=== PATIENT | female | born 1985 | race Caucasian/White ===

== ENCOUNTER 2017-01-09 08:00 | Emergency (ER) | payer OTHER ==
[~2017-01-09] VITALS: Ht 157.5 cm; Wt 67.5 kg
[~2017-01-09 08:00] MED LIST: PREN-39 PO
[2017-01-09 08:04] VITALS: Ht 157.5 cm; Wt 67.5 kg
--- NOTE | 2017-01-09 08:33 | ERD ---
ER Documentation Chief Complaint Date/Time DATE: 01/09/17 TIME: 08:30 Chief Complaint Complains of nausea, vomiting and dizziness with right arm pain HPI 31-year-old female who presented emergency room with multiple complaints including dizziness, nauseous but no vomiting, left upper back pain, left shoulder pain, left arm pain. Her symptoms is on and off for more than 2 weeks. She also stated that she has urinary frequency in the past few days. Also added that she is taking [id number] omeprazole, Mylanta. Denies headache, loss of consciousness, dizziness, blurry vision, changes in vision, photophobia, facial pain, ear pain, throat pain, difficulty swallowing, neck pain, shoulder pain, chest pain, cough, hemoptysis, abdominal pain, back pain, loss of appetite, hematochezia, diarrhea, constipation, , the possibility of being , bladder and bowel incontinences, extremity weakness, extremity tenderness, numbness or tingling sensation, difficulty walking, recent travel, recent exposure to illness, recent antibiotic use in the last 3 months, fever, chills. Allergy: Penicillin. PMH: Denies. Family medical history: Denies family history of stroke, cardiac before the age of 50 AO LMP: 12/24/2016 Medications: Omeprazole. Surgery: Denies. Primary Social History: Not working at this time. Denies smoking, use of alcohol, use of illegal drugs. ROS All systems reviewed and are negative except as per history of present illness. Medications Home Meds Reported Medications Vits W-Ca,Fe,Fa(<1MG) ( Vitamins) 1 Tab Tablet, 1 TAB PO DAILY for 7 Days 01/12/14 Allergies Allergies: Coded Allergies: Penicillins (Verified Allergy, Intermediate, DIARRHEA AND RASH, 08/15/12) PMhx/Soc History of Surgery: Yes (BREAST BENIGN MASS REMOVED) Anesthesia Reaction: No Hx Neurological Disorder: No Hx Respiratory Disorders: No Hx Cardiac Disorders: No Hx Psychiatric Problems: No Hx Miscellaneous Medical Probl: No Hx Alcohol Use: No Hx Substance Use: No Hx Tobacco Use: No Physical Exam Vitals Vital Signs Date Time Temp Pulse Resp B/P Pulse Ox O2 Delivery O2 Flow Rate FiO2 01/09/17 08:04 97.8 93 20 110/61 100 Physical Exam CONSTITUTIONAL: Well-appearing; well-nourished; in no apparent distress. HEAD: Normocephalic; atraumatic. EYES: Conjunctiva clear, sclera non-icteric, EOM intact. PERRL Ears: Hearing intact. EACs clear, TMs non-bulging, non-inflamed, translucent & mobile, ossicles normal appearance, No obstructions, no erythema, no discharges Nose: No obstructions. No polyps. No external lesions. Mucosa non-inflamed. No external lesions, septum and turbinates normal. No rhinorrhea. No discharges. Frontal sinus is non-tender to palpation. Maxillary sinus is non-tender to palpation. MOUTH: Moist mucous membranes, no lesion, no obstructions, no vesicles, no thrush, patent airway Throat: Uvula in midline. Right tonsil is +1 with no erythema, no exudate. Left tonsil is +1 with no erythema, no exudate. Tolerating secretions well. Good gag reflex. Patent airway. Neck: Supple, without lesions, bruits, or adenopathy. No mass. Thyroid non- enlarged and non-tender to palpation. CHEST: Symmetrical chest. Respirations even and not labored. No retractions noted. CARDIOVASCULAR: Normal S1, S2. RRR. No murmurs, gallops. RESPIRATORY: Normal chest excursion with respiration; breath sounds clear and equal bilaterally; no wheezes, rhonchi, or rales. Breathing even and unlabored. Speaking in clear, full, and complete sentences w/ ease. ABDOMEN: Normal bowel sounds normal. Soft, round, non-distended, non-guarding, no tenderness, no rebound, no organomegaly, no masses, no pulsating abdominal mass. No hernia. No peritoneal signs. : No CVA tenderness. BACK: Symmetrical shoulder. Spine is midline without deformity, tenderness. No evidence of trauma or deformity. PELVIS: Stable pelvis. No evidence of trauma or deformity. MUSCULOSKELETAL: Normal gait and station. No misalignment, asymmetry, crepitation, defects, tenderness, masses, effusions, decreased range of motion, instability, atrophy or abnormal strength or tone in the head, neck, spine, ribs , pelvis or extremities. No calf tenderness. NEUROVASCULAR: Distal pulses are present. Pedal pulse are present, equal, and normal. Capillary refills are < 2 seconds. NEUROLOGIC: Alert and oriented x4. Speaks full and clear sentences. Cranial Nerves II-XII normal. Sensation to pain, touch, and proprioception normal. Grossly unremarkable. No neurologic deficits. Romberg test is negative. PSYCHOLOGICAL: The patients mood and manner are appropriate. No hallucinations , delusions. Not SI. Not HI. Has the capacity to decide for self SKIN: Normal for age and ethnicity; warm; dry; good turgor; no apparent lesions or exudates. No rashes, hives, discoloration. Intact. Result Diagram: 01/09/17 0850 01/09/17 0850 Results 24 hrs Laboratory Tests Test 01/09/17 08:45 01/09/17 08:50 Urine Color LT. YELLOW Urine Clarity SLIGHTLY CLOUDY Urine pH 8.5 Urine Specific Estill 1.015 Urine Ketones NEGATIVE Urine Nitrite NEGATIVE Urine Bilirubin NEGATIVE Urine Urobilinogen 0.2 E.U./dL Urine Leukocyte Esterase NEGATIVE Urine Hemoglobin NEGATIVE Urine Glucose NEGATIVE% Urine Total Protein NEGATIVE White Blood Count 7.710^3/ul Red Blood Count 4.5710^6/ul Hemoglobin 14.3g/dl Hematocrit 42.8% Mean Corpuscular Volume 93.7fl Mean Corpuscular Hemoglobin 31.3pg Mean Corpuscular Hemoglobin Concent 33.4g/dl Red Cell Distribution Width 11.6% Platelet Count 47242^3/UL Mean Platelet Volume 10.1fl Neutrophils % 59.1% Lymphocytes % 32.8% Monocytes % 6.2% Eosinophils % 1.2% Basophils % 0.6% Nucleated Red Blood Cells % 0.0/100WBC Neutrophils # 4.610^3/ul Lymphocytes # 2.510^3/ul Monocytes # 0.510^3/ul Eosinophils # 0.110^3/ul Basophils # 0.110^3/ul Nucleated Red Blood Cells # 0.010^3/ul Sodium Level 139mmol/L Potassium Level 4.4mmol/L Chloride Level 102mmol/L Carbon Dioxide Level 27mmol/L Anion Gap 14 Blood Urea Nitrogen 14mg/dl Creatinine 0.70mg/dl Glucose Level 97mg/dl Calcium Level 9.1mg/dl Total Bilirubin 0.4mg/dl Direct Bilirubin 0.00mg/dl Indirect Bilirubin 0.4mg/dl Aspartate Amino Transf (AST/SGOT) 24IU/L Alanine Aminotransferase (ALT/SGPT) 21IU/L Alkaline Phosphatase 70IU/L Troponin I < 0.012ng/ml Total Protein 8.1g/dl Albumin 4.6g/dl Globulin 3.50g/dl Albumin/Globulin Ratio 1.31 Amylase Level 81U/L Lipase 78U/L Current Medications Medications (Trade) Dose Ordered Sig/Roosevelt Route PRN Reason Start Time Stop Time Status Last Admin Dose Admin Miscellaneous Medication (Gi Cocktail (2)) 40 ml ONCE ONCE PO 01/09/17 09:00 01/09/17 09:01 DC 01/09/17 08:47 Procedures/MDM Examination: Please see physical examination. Disease process, medical treatment was explained to the patient and family member. They verbalized understanding and agreed with the diagnostic tests, medical treatment, and follow-up care. EKG: Normal sinus rhythm with sinus arrhythmia with ventricular rate of 81 bpm. No evidence of acute myocardial infarction. Blood works: Reviewed. POC urine : Negative. Urinalysis: Reviewed. Treatment: GI cocktail. Re-evaluation: Denies headache dizziness, blurry vision, neck pain, chest pain, back pain, shoulder pain, arm pain, abdominal pain. No nausea and vomiting. Unremarkable abdominal re-examination. No neurological deficits. Consultation: None. Differential diagnosis: Acute myocardial infarction verus shoulder pain versus dizziness versus gastritis versus cholecystitis versus versus UTI Medical decision makin-year-old female who presented emergency room with multiple complaints including dizziness, nauseous but no vomiting, left arm pain , left shoulder pain. Her symptoms is on and off for more than 2 weeks. She also stated that she has urinary frequency in the past few days. Also added that she is taking [id number] omeprazole, Mylanta. Patient's complaint, patient's history about her complaint, my physical findings, diagnostic test results are consistent with my final diagnosis of gastritis. Medications prescribed are the following: Zofran. Pepcid. Patient and family member are made aware of the side effects and adverse reactions of the medications prescribed. Instructed on when to seek emergent and medical attention in case allergic/anaphylactic reactions or severe side effects and or adverse reactions to medications. Patient and family member verbalized understanding. Patient instructed Instructed to follow-up with his PCP in 24-48 hours. Patient stated that she will follow-up with her primary care provider in the next 24-48 hours. Instructed to Call 911 for chest pain, shortness of breath. Advised to come back here in ED as soon as possible for severity of symptoms which includes but not limited to: any new symptoms; shortness of breath/difficulty of breathing; cardiovascular changes; severe gastrointestinal symptoms; signs and symptoms of bleeding and or infection; signs of compartment syndrome/neurovascular changes; neurological changes/deficits. Patient and family member verbalized understanding. Upon discharge, patient is alert and oriented x 4, speaks full and clear sentences, denies pain, has no neurological deficits, has no neurovascular deficits, difficulty of breathing. Breathing even and unlabored. Lung sounds are clear to auscultation. Not in distress. Appears comfortable. Ambulatory with steady gait. Appears satisfied with care provided here in ED. Departure Diagnosis: Primary Impression: Gastritis Condition: Good Additional Instructions: Patient instructed Instructed to follow-up with his PCP in 24-48 hours. Patient stated that she will follow-up with her primary care provider in the next 24-48 hours. Instructed to Call 911 for chest pain, shortness of breath. Advised to come back here in ED as soon as possible for severity of symptoms which includes but not limited to: any new symptoms; shortness of breath/difficulty of breathing; cardiovascular changes; severe gastrointestinal symptoms; signs and symptoms of bleeding and or infection; signs of compartment syndrome/neurovascular changes; neurological changes/deficits. Patient and family member verbalized understanding. BRAXTON BELTRÁN Jan 09, 2017 08:33
[2017-01-09 08:59] LABS: ADD SCAN DIFF NO
[2017-01-09] MEDS ORDERED: LIDOCAINE/MYLANTA 40 ML BTL PO ONE (09:00)
[2017-01-09 09:02] LABS: ADD UMIC NO; URINE BILIRUBIN (Dip) NEGATIVE (NEGATIVE); URINE BLOOD (Dip) NEGATIVE (NEGATIVE); URINE COLOR LT. YELLOW (YELLOW); URINE GLUCOSE (Dip) NEGATIVE (NEGATIVE); URINE KETONES (Dip) NEGATIVE (NEGATIVE); URINE LEUKOCYTE ESTERASE (Dip) NEGATIVE (NEGATIVE); URINE NITRITE (Dip) NEGATIVE (NEGATIVE); URINE TOTAL PROTEIN (Dip) NEGATIVE (NEGATIVE); URINE UROBILINOGEN (Dip) 0.2 E.U./dL (0.1-1.0)
[2017-01-09 09:03] LABS: BASOPHIL # 0.1 10^3/ul (0.0-0.1); BASOPHILS % 0.6 % (0.0-2.0); EOSINOPHILS # 0.1 10^3/ul (0.0-0.5); EOSINOPHILS % 1.2 % (0.0-7.0); HEMATOCRIT 42.8 % (37.0-47.0); HEMOGLOBIN 14.3 g/dl (12.0-16.0); LYMPHOCYTES # 2.5 10^3/ul (0.8-2.9); LYMPHOCYTES % 32.8 % (15.0-51.0); MEAN CORPUSCULAR HEMOGLOBIN 31.3 pg (29.0-33.0); MEAN CORPUSCULAR HGB CONC 33.4 g/dl (32.0-37.0); MEAN CORPUSCULAR VOLUME 93.7 fl (82.0-101.0); MEAN PLATELET VOLUME 10.1 fl (7.4-10.4); MONOCYTE # 0.5 10^3/ul (0.3-0.9); MONOCYTES % 6.2 % (0.0-11.0); NEUTROPHIL # 4.6 10^3/ul (1.6-7.5); NEUTROPHILS % 59.1 % (39.0-77.0); PLATELET COUNT 240 10^3/UL (140-415); RED BLOOD COUNT 4.57 10^6/ul (4.20-5.40); RED CELL DISTRIBUTION WIDTH 11.6 % (11.5-14.5); WHITE BLOOD COUNT 7.7 10^3/ul (4.8-10.8)
[2017-01-09 09:13] LABS: ALBUMIN 4.6 g/dl (3.3-4.9); CHLORIDE 102 mmol/L (97-110)
[2017-01-09 09:14] LABS: POTASSIUM 4.4 mmol/L (3.5-5.1); SODIUM 139 mmol/L (135-144)
[2017-01-09 09:16] LABS: ALBUMIN/GLOBULIN RATIO 1.31; AMYLASE 81 U/L (11-123); ANION GAP 14 (8-16); CARBON DIOXIDE 27 mmol/L (21-31); TOTAL PROTEIN 8.1 g/dl (6.1-8.1)
[2017-01-09 09:17] LABS: ALANINE AMINOTRANSFERASE 21 IU/L (13-69); ALKALINE PHOSPHATASE 70 IU/L (42-121); ASPARTATE AMINO TRANSFERASE 24 IU/L (15-46); BILIRUBIN,INDIRECT 0.4 mg/dl (0-1.1); BILIRUBIN,TOTAL 0.4 mg/dl (0.2-1.3); BLOOD UREA NITROGEN 14 mg/dl (7-20); CALCIUM 9.1 mg/dl (8.4-10.2); GLUCOSE 97 mg/dl (70-220)
[2017-01-09 09:28] LABS: TROPONIN-I < 0.012 ng/ml (0.00-0.12)
[2017-01-09] MEDS ORDERED: FAMO-18 PO (09:35)
[2017-01-09] MEDS ORDERED: ONDA4TAB14 PO (09:36)
== END 2017-01-09 09:45 | disposition home or self-care (01) ==
LOC: FTE 08:00
DX: K29.70 Gastritis, unspecified, without bleeding (principal); R11.2 Nausea with vomiting, unspecified; R35.0 Frequency of micturition
CPT/HCPCS: 80053; 81003; 82150; 83690; 84484; 85025; 87086; 93005; Z7610; 36415

== ENCOUNTER 2017-03-01 06:26 | Day surgery (SDC) | payer OTHER ==
[~2017-03-01] VITALS: Ht 154.9 cm; Wt 67.8 kg
[~2017-03-01 06:26] MED LIST changes: +FAMO-18 PO; +ONDA4TAB14 PO
[2017-03-01 07:00] VITALS: Ht 154.9 cm; Wt 67.8 kg
[2017-03-01] MEDS ORDERED: PANT40TA4 PO (07:13)
[2017-03-01 07:57] VITALS: BP 110/66; PULSE 71; RESP 14
[2017-03-01] MEDS ORDERED: FENTAnyl 50 MCG/ML VIAL ONE (08:21)
[2017-03-01] MEDS ORDERED: MIDAZOLAM 1 MG/ML 2 ML INJ ONE (08:21)
[2017-03-01 08:45] VITALS: BP 88/56; RESP 20
--- NOTE | 2017-03-02 07:35 | GILP ---
DATE OF PROCEDURE: 03/01/2017 PROCEDURE: Esophagogastroduodenoscopy and biopsy. SURGEON: Dr. Santiago PREOPERATIVE DIAGNOSES: 1. Abdominal pain. 2. Chronic heart block. POSTOPERATIVE DIAGNOSES: 1. Gastroesophageal reflux disease. 2. Gastritis with erosions. 3. Gastric mucosal biopsies were taken for Helicobacter pylori test. INDICATION FOR THE PROCEDURE: Ms. Emma Kingsley is a 31-year-old female patient with right upper abdominal pain and chronic heartburn, not responding to therapy. Patient was scheduled for endoscopic examination for further evaluation. The procedure and possible complications are well explained to the patient. She understood and consented to the procedure. DESCRIPTION OF PROCEDURE: Under the influence of fentanyl and Versed, the gastroscope was carefully introduced into the esophagus under direct vision. It was advanced to the stomach, into the pylorus into the duodenal bulb and ____ . FINDINGS: ESOPHAGUS: gastroesophageal reflux disease, but the esophageal mucosa was normal. STOMACH: She had gastritis with erosions. Gastric mucosal biopsies were taken for H. pylori test. DUODENUM: Normal. She tolerated the procedure very well. There is no complication from the procedure. At the end of procedure, she was awake with stable vital signs, and she was discharged home to the care of her family. IMPRESSION: 1. Gastroesophageal reflux disease. 2. Gastritis with erosions. 3. Gastric mucosal biopsies were taken for Helicobacter pylori test. PLAN: 1. Pantoprazole 40 mg p.o. q.a.m. 2. Zantac 300 mg p.o. at bedtime. 3. Await histopathology report. Dictated By: JOHAN BYNUM/HONORIO Conf#: [id number] DID#: [id number] CC: JOHAN SANTIAGO MD;*EndCC* MTDD
== END 2017-03-02 08:35 | disposition home or self-care (01) ==
LOC: MERGE 06:26 → GIL 06:26
PROVIDERS: ATTEND Internal Medicine Gastroenterology
DX: K21.9 Gastro-esophageal reflux disease without esophagitis (principal); K29.60 Other gastritis without bleeding
CPT/HCPCS: 43239; 84703; 87081; J2250; J3010; Z7610

== ENCOUNTER 2018-09-06 16:19 | Outpatient (CLI) | END 2018-09-06 20:10 | disposition home or self-care (01) ==

== ENCOUNTER 2018-10-15 23:30 | Inpatient (IN) | payer OTHER ==
[~2018-10-15] VITALS: Ht 160 cm; Wt 91.5 kg
[~2018-10-15 23:30] MED LIST changes: -FAMO-18 PO; -ONDA4TAB14 PO
[2018-10-15 23:46] VITALS: Ht 160 cm; Wt 91.5 kg
[2018-10-16 00:11] VITALS: BP 124/67; PULSE 77; RESP 18
[2018-10-16] MEDS ORDERED: LIDOCAINE 1% (MPF) 30 ML INJ INJ PRN (01:30)
[2018-10-16] MEDS ORDERED: METHYLERGONOVINE 0.2 MG INJ IM PRN (01:30)
[2018-10-16] MEDS ORDERED: CLINDAMYCIN 900 MG/D5W (PMX) 50 ML IVPB SCH (01:30)
[2018-10-16] MEDS ORDERED: IBUPROFEN 600 MG TAB PO PRN (01:30)
[2018-10-16] MEDS ORDERED: MISOPROSTOL 200 MCG TAB PR PRN (01:30)
[2018-10-16] MEDS ORDERED: OXYTOCIN 30 UNITS/LR 500 ML IV SCH ×2 (01:30)
[2018-10-16] MEDS ORDERED: OXYTOCIN 30 UNITS/LR 500 ML IV PRN (01:30)
[2018-10-16] MEDS ORDERED: OXYCODONE/ACETAMINOPHEN (5/325) TAB PO PRN (01:30)
[2018-10-16] MEDS ORDERED: BUTORPHANOL 2 MG INJ IV PRN (01:30)
[2018-10-16] MEDS ORDERED: CARBOPROST 250 MCG INJ IM PRN (01:30)
[2018-10-16] MEDS: LACTATED RINGER'S 1,000 ML IV SCH ×3 (01:43→17:07)
[2018-10-16] MEDS ORDERED: MISOPROSTOL 50 MCG CAPSULE PO SCH (02:00)
--- NOTE | 2018-10-16 04:57 | HP ---
Date/Time of Note Date/Time of Note DATE: 10/16/18 TIME: 04:50 OB - History Hx of Present Free Text/Dictation 33y.o at 37w3d with c/o leaking fluid without uc's VE closed//-3 vaginal pooling with ROM plus pos GBS pos ,allergic to penicillin clindamycin as protocol started admitted for induction of labor with cytotec Chief Complaint: leaking fluid Estimated Due Date: Nov 02, 2018 : 3 Para: 2 Spontaneous : 0 Therapeutic : 0 Care: Good Care Ultrasounds: Normal mid trimester US Obstetrical Complications: None Medical Complications: None Past Family/Social History * Past Medical, Surgical, Family and Obstetric Histories reviewed from chart. Blood Type: Unknown Rubella: unknown RPR/VDRL: Unknown GBS Status: Positive HBsAG: Unknown OB Admission Exam Vital Signs Vital Signs Vital Signs Date Temp Pulse Resp B/P (MAP) Pulse Ox O2 O2 Flow FiO2 Time Delivery Rate 10/16/18 98.4 77 18 124/67 Room Air 00:11 (86) Physical Exam HEENT: WNL Heart: Rhythm Normal Lungs: Clear, Equal Abdomen: WNL Extremities: Normal Reflexes: Normal Cervical Dilatation: None Effacement: 25% Membranes: Ruptured Amniotic Fluid: Clear Heart Rate: 140's Accelerations: Accelerations Present Decelerations: No Decelerations Varibility: Moderate Contractions on Admission: None Last 72 hours Lab Results CBC & BMP 10/16/18 01:20 OB Assessment/Plan Reason for admission: rupture of membranes Other Assessment: IUP 37w3d Plan: Induction Induction Method: per Misoprostol Protocol KINGSLEY BURR MD Oct 16, 2018 04:57
[2018-10-16] MEDS: MISOPROSTOL 50 MCG CAPSULE PO PRN ×4 (08:12→21:37)
[2018-10-16] MEDS ORDERED: CLINDAMYCIN 900 MG/D5W (PMX) 50 ML IVPB ONE (11:32)
[2018-10-16] MEDS: CLINDAMYCIN 900 MG/D5W (PMX) 50 ML IVPB SCH ×2 (11:34→19:08)
--- NOTE | 2018-10-16 15:40 | QN ---
Documentation Comment on cytotec no significant change uc irregular KINGSLEY BURR MD Oct 16, 2018 15:40
[2018-10-16] MEDS ORDERED: LACTATED RINGER'S 1,000 ML IV PRN (20:25)
[2018-10-17] MEDS: LACTATED RINGER'S 1,000 ML IV SCH ×3 (01:43→18:49)
[2018-10-17] MEDS: MISOPROSTOL 50 MCG CAPSULE PO PRN (01:43)
[2018-10-17] MEDS: CLINDAMYCIN 900 MG/D5W (PMX) 50 ML IVPB SCH ×4 (03:02→18:50)
[2018-10-17] MEDS: ACETAMINOPHEN 325 MG TAB PO PRN ×2 (03:52→10:28)
[2018-10-17] MEDS ORDERED: MINERAL OIL LIGHT 10 ML VIAL TOP PRN (04:00)
[2018-10-17] MEDS ORDERED: ACETAMINOPHEN 325 MG TAB PO PRN (10:30)
[2018-10-17] MEDS ORDERED: OXYTOCIN 30 UNITS/LR 500 ML IV SCH (10:30)
[2018-10-17] MEDS ORDERED: MISOPROSTOL 50 MCG CAPSULE VAG ONE (10:30)
[2018-10-17] MEDS ORDERED: FENTAnyl 2MCG/ML-ROPIV 0.2% 100 ML ONE (18:02)
--- NOTE | 2018-10-17 18:33 | PREAC ---
Date/Time of Note Date/Time of Note DATE: 10/17/18 TIME: 18:32 Anesthesia Eval and Record Evaluation Time Pre-Procedure Interview DATE: 10/17/18 TIME: 18:32 Age 33 Sex female NPO: 8 hrs Preoperative diagnosis Labor Pain Planned procedure Labor Epidural Past Medical History Past Medical History: Includes Heme: Anemia : : (2), Para: (1), Gestational age: (37) Surgery & Anesthesia Issues No known issue Meds Anticoagulation: No Beta Kee within 24 hr: No Reason Beta Kee not given: Pt. not on B-Kee Reported Medications Vits W-Ca,Fe,Fa(<1MG) ( Vitamins) 1 Tab Tablet, 1 TAB PO DAILY for 7 Days 01/12/14 Current Medications Lactated Ringer's 1,000 ml @ 125 mls/hr Q8H IV Last administered on 10/17/18at 10:19; Admin Dose 125 MLS/HR; Start 10/16/18 at 01:15 Butorphanol Tartrate (Stadol) 2 mg Q2H PRN IV PAIN; Start 10/16/18 at 01:30 Lidocaine (Xylocaine 1% (Mpf)) 30 ml ONCE PRN INJ EPISIOTOMY; Start 10/16/18 at 01:30 Oxytocin/Lactated Ringer's 500 ml @ 500 mls/hr ONCE POST IV ; Start 10/16/18 at 01:30 Oxytocin/Lactated Ringer's 500 ml @ 125 mls/hr POST IV ; Start 10/16/18 at 01:30 Ibuprofen (Motrin) 600 mg ONCE PRN PO PAIN LEVEL 1-5; Start 10/16/18 at 01:30 Oxycodone/ Acetaminophen (Percocet (5/ 325)) 2 tab ONCE PRN PO PAIN LEVEL 6-10; Start 10/16/18 at 01:30 Oxytocin/Lactated Ringer's 500 ml @ 0 mls/hr ONCE PRN IV VAGINAL BLEEDING; Start 10/16/18 at 01:30 Methylergonovine Maleate (Methergine) 0.2 mg ONCE PRN IM VAGINAL BLEEDING; Start 10/16/18 at 01:30 Carboprost Tromethamine (Hemabate) 250 mcg ONCE PRN IM VAGINAL BLEEDING; Start 10/16/18 at 01:30 Misoprostol (Cytotec) 1,000 mcg ONCE PRN MD VAGINAL BLEEDING; Start 10/16/18 at 01:30 Clindamycin HCl/ Dextrose 50 ml @ 100 mls/hr Q8 IVPB Last administered on 10/17/18at 10:58; Admin Dose 100 MLS/HR; Start 10/16/18 at 13:00 Lactated Ringer's 1,000 ml @ 2,000 mls/hr Q30M PRN IV ANESTHESIA Last administered on 10/17/18at 17:51; Admin Dose 2,000 MLS/HR; Start 10/16/18 at 20:25 Acetaminophen (Tylenol Tab) 650 mg Q4H PRN PO MILD PAIN(1-3)OR ELEVATED TEMP Last administered on 10/17/18at 10:28; Admin Dose 650 MG; Start 10/17/18 at 04:00 Acetaminophen (Tylenol Tab) 650 mg Q4H PRN PO MILD PAIN(1-3)OR ELEVATED TEMP; Start 10/17/18 at 10:30 Oxytocin/Lactated Ringer's 500 ml @ 0 mls/hr FOR INDUCTION IV Last administered on 10/17/18at 10:48; Admin Dose 1 MLS/HR; Start 10/17/18 at 10:30 Meds reviewed: Yes Allergies Coded Allergies: Penicillins (Verified Allergy, Intermediate, DIARRHEA AND RASH, 10/16/18) Allergies Reviewed: Yes Labs/Studies Labs Reviewed: Reviewed by anesthesiologist Result Diagram: 10/16/18 0120 test: Positive Studies: ECG (n/a), CXR (n/a) Pre-procedure Exam Last vitals Vital Signs Date Temp Pulse Resp B/P (MAP) Pulse Ox O2 O2 Flow FiO2 Time Delivery Rate 10/17/18 97.6 11:13 10/16/18 77 18 124/67 Room Air 00:11 (86) Airway: Adequate mouth opening, Adequate thyromental dist Mallampati: Mallampati II Teeth: Normal Lung: Normal Heart: Normal ASA Physical Status ASA physical status: 2 Emergency: None Planned Anesthetic Neuraxial: Epidural Planned Pain Management Epidural Pre-operative Attestations Prior to commencing anesthesia and surgery, the patient was re-evaluated, there was verification of: *The patient's identity *The results of appropriate recent lab work and preoperative vital signs *The above evaluation not changing prior to induction *Anesthetic plan, risk benefits, alternative and complications discussed with patient/family; questions answered; patient/family understands, accepts and wishes to proceed. KERON MENDOZA MD Oct 17, 2018 18:33
--- NOTE | 2018-10-17 18:35 | PAC ---
Date/Time of Note Date/Time of Note DATE: 10/17/18 TIME: 18:35 Post-Anesthesia Notes Post-Anesthesia Note Last documented vital signs Vital Signs Date Temp Pulse Resp B/P (MAP) Pulse Ox O2 O2 Flow FiO2 Time Delivery Rate 10/17/18 97.6 84 19 108/55 100 Room Air 18:23 (62) 10/16/18 77 18 124/67 Room Air 00:11 (86) Activity: WNL Respiratory function: WNL Cardiovascular function: WNL Mental status: Baseline Pain reasonably controlled: Yes Hydration appropriate: Yes Nausea/Vomiting absent: Yes KERON MENDOZA MD Oct 17, 2018 18:35
[2018-10-17] MEDS ORDERED: NALOXONE (0.4 MG/ML) INJ IV PRN (19:00)
[2018-10-17] MEDS ORDERED: FENTAnyl 2MCG/ML-ROPIV 0.2% 100 ML BAG EPI SCH (19:00)
[2018-10-17] MEDS ORDERED: MINERAL OIL LIGHT 10 ML VIAL TOP ONE (19:30)
--- NOTE | 2018-10-17 22:10 | LDN ---
Date/Time of Note Date/Time of Note DATE: 10/17/18 TIME: 22:03 Delivery Summary of normal male after ROM for 45hrs GBS pos placed on clindamycin Weeks of Gestation 37w5d Placenta Delivered: Spontaneously Meconium: none Episiotomy: No Perineal laceration: 1 Laceration repair: 000 ch gut Anesthesia type: Epidural Estimated blood loss: 100 Sponge & Needle done & correct: Yes All needle counts correct: Yes Any foreign bodies felt in the: No Delivery Information Sex Infant Sex: male Apgars 1 Minute: 8 5 Minute: 9 Suctioning Nose & mouth suctioned at agustín: Yes Delee suction performed: No Umbilical Cord Umbilical cord with: 3 Vessels Cord presentations: no nuchal cord Cord Blood was obtained: Yes Mother & Baby Disposition Disposition Mom & Baby to Maternity; Good: Yes Mom transferred to: Other Baby to NICU: No () KINGSLEY BURR MD Oct 17, 2018 22:10
[2018-10-18] VITALS: BP 108/58; PULSE 63; RESP 18
[2018-10-18] MEDS ORDERED: WITCH HAZEL/GLYCERIN PAD PR PRN
[2018-10-18] MEDS ORDERED: BENZOCAINE 20% 56 ML SPRAY TOP PRN
[2018-10-18] MEDS ORDERED: OXYTOCIN 30 UNITS/LR 500 ML IV PRN
[2018-10-18] MEDS ORDERED: ZOLPIDEM 5 MG TAB PO PRN
[2018-10-18] MEDS ORDERED: CARBOPROST 250 MCG INJ IM PRN
[2018-10-18] MEDS ORDERED: OXYCODONE/ASPIRIN (4.88/325) TAB PO PRN ×2
[2018-10-18] MEDS ORDERED: MISOPROSTOL 200 MCG TAB PR PRN
[2018-10-18] MEDS ORDERED: METHYLERGONOVINE 0.2 MG INJ IM PRN
[2018-10-18] MEDS: LANOLIN HPA 1 PKT TOP PRN (02:02)
[2018-10-18 04:00] VITALS: BP 125/64; PULSE 84; RESP 20
[2018-10-18] MEDS: IBUPROFEN 600 MG TAB PO SCH ×5 (06:18→23:23)
--- NOTE | 2018-10-18 06:52 | NUR ---
EOSS: FUNDUS FIRM, LOCHIA MODERATE. BREAST FEEDING WELL. BONDING WITH PARENTS. PT STATED HER LEFT HIP DOWN HER LEG HURT WHEN SHE MOVED. PERCODAN RELIEVED MOST OF THE PAIN.
[2018-10-18 07:45] VITALS: BP 103/50; PULSE 80; RESP 18
[2018-10-18] MEDS: SENNA/DOCUSATE NA (8.6MG/50MG) TAB PO SCH ×2 (09:56→20:42)
--- NOTE | 2018-10-18 14:57 | QN ---
Documentation Comment no c/o doing fine vss afebrile lochia min stable P discharge home in am KINGSLEY BURR MD Oct 18, 2018 14:57
[2018-10-18 15:37] VITALS: BP 104/62; PULSE 84; RESP 18
--- NOTE | 2018-10-18 17:56 | NUR ---
EOSS:PATIENT IN STABLE CONDITION AND BONDING WELL WITH THE BABY.PATIENT VERBALIZED THAT HER LEFT HIP IS NOT PAINFUL ANYMORE.
[2018-10-18 19:40] VITALS: BP 98/66; PULSE 84; RESP 19
[2018-10-19] MEDS: LANOLIN HPA 1 PKT TOP PRN (03:07)
[2018-10-19 03:30] VITALS: BP 96/55; PULSE 68; RESP 17
--- NOTE | 2018-10-19 04:13 | NUR ---
EOSS; STABLE DURING THE NIGHT. VOIDED WELL. LOCHIA MINIMAL. BONDING WELL WITH BABY.
[2018-10-19] MEDS: IBUPROFEN 600 MG TAB PO SCH ×3 (05:36→17:29)
[2018-10-19 08:30] VITALS: BP 99/54; PULSE 71; RESP 14
[2018-10-19] MEDS ORDERED: DIPHTH/TET/ACEL PERTUSS (ADULT) 0.5 ML VIAL IM* ONE (09:00)
[2018-10-19] MEDS: SENNA/DOCUSATE NA (8.6MG/50MG) TAB PO SCH (09:04)
[2018-10-19 16:11] VITALS: BP 94/71; PULSE 84; RESP 18
--- NOTE | 2018-10-19 16:14 | PN ---
Date/Time of Note Date/Time of Note DATE: 10/19/18 TIME: 16:12 OB Subjective Subjective Subjective Breast-feeding. Denies any complaint. Reports swelling of both lower extremi ty. Denies any pain in lower extremity. Urinated. Vaginal bleeding in the amount of menses. OB Objective Objective Objective General appearance: Alert and oriented x4 does not appear to be in any acute distress Abdomen: Soft, fundus firm and nontender palpable below the umbilicus Breast: With no evidence of engorgement or mastitis or nipple fissure Extremities: 1+ bilateral symmetric ankle edema. Likely related. No cords palpable, negative Homans sign VS - Last 72 Hours, by Label Date Temp Pulse Resp B/P (MAP) Pulse Ox O2 O2 Flow FiO2 Time Delivery Rate 10/19/18 97.9 71 14 99/54 (69) Room Air 08:30 10/19/18 97.9 68 17 96/55 (69) Room Air 03:30 10/18/18 97.7 84 19 98/66 (77) Room Air 19:40 10/18/18 98.0 84 18 104/62 Room Air 15:37 (76) 10/18/18 98.2 80 18 103/50 Room Air 07:45 (67) 10/18/18 98.3 84 20 125/64 04:00 (84) 10/18/18 97.6 63 18 108/58 00:00 (75) 10/17/18 97.6 11:13 Test 10/18/18 05:41 10/18/18 05:58 Lab Scanned Report REFERENCE LAB [id number] White Blood Count 16.9 10^3/ul Red Blood Count 3.40 10^6/ul Hemoglobin 10.7 g/dl Hematocrit 31.1 % Mean Corpuscular Volume 91.5 fl Mean Corpuscular Hemoglobin 31.5 pg Mean Corpuscular Hemoglobin Concent 34.4 g/dl Red Cell Distribution Width 12.5 % Platelet Count 205 10^3/UL Mean Platelet Volume 10.2 fl Immature Granulocytes % 0.400 % Neutrophils % 82.0 % Lymphocytes % 11.0 % Monocytes % 6.0 % Eosinophils % 0.2 % Basophils % 0.4 % Nucleated Red Blood Cells % 0.0 /100WBC Immature Granulocytes # 0.070 10^3/ul Neutrophils # 13.9 10^3/ul Lymphocytes # 1.9 10^3/ul Monocytes # 1.0 10^3/ul Eosinophils # 0.0 10^3/ul Basophils # 0.1 10^3/ul Nucleated Red Blood Cells # 0.0 10^3/ul OB Assessment/Plan Other Assessment: Status post spontaneous rupture membrane at term day #2 Doing well Stable for discharge. Dc home follow up at 6 weeks for post check SHALONDA COX MD Oct 19, 2018 16:14
--- NOTE | 2018-10-19 16:17 | DS ---
Date/Time of Note Date/Time of Note DATE: 10/19/18 TIME: 16:15 Discharge Summary Admission/Discharge Info Admit Date/Time Oct 16, 2018 at 01:00 Discharge Date/Time October 19, 2018 Discharge Diagnosis Stable Patient Condition: Good Consults N/A Procedures Status post induction for SROM at term GBS positive Status post Hx of Present Illness 33y.o at 37w3d with c/o leaking fluid without uc's VE closed//-3 vaginal pooling with ROM plus pos GBS pos ,allergic to penicillin clindamycin given for intrapartum GBS prophylaxis and underwent induction of labor with Cytotec. She had an uncomplicated vaginal delivery. course was also not completed. day #2 patient was noted to be stable enough to be discharged home. She was ambulating. Breast-feeding. Vitals were stable. She denies any symptoms. Advised patient have a follow-up at 6 is or sooner with her primary OB office. Her vitals were stable and she was afebrile. Home Meds Reported Medications Vits W-Ca,Fe,Fa(<1MG) ( Vitamins) 1 Tab Tablet, 1 TAB PO DAILY for 7 Days 01/12/14 Follow-up Plan At 6 days with primary OB office Dr. Delgado Primary Care Provider Not On Staff Doctor Time spent on discharge: > 30 minutes SHALONDA COX MD Oct 19, 2018 16:17
--- NOTE | 2018-10-19 16:18 | PD.PPDC ---
SMOKE JUMPER Discharge Instruction Provider Information Physician Information October 19, 2018 Condition [id number] Patient Condition: [id number] Good Diet [id number] Diet: [id number] Resume Regular Diet Activity/Restrictions [id number] Restrictions: [id number] No Exercising No Lifting No Driving Minimize Walking Minimize Stair-climbing No Sexual Activity Nothing in the Vagina No [place] No Tampons, douche Follow-up Follow-up with Physician: 6, Week/Weeks Return to clinic for [id number] DISPENSING OPERATOR Instructions: Qwakh2u Fever greater than 101 Chills Worsening abdominal pain Excessive Vaginal Bleeding More than 2 pads per hour Unable to tolerate diet [id number] OB Instructions: Igoxb6c Breast Tenderness Depression Blurried Vision Headache SHALONDA COX MD Oct 19, 2018 16:18
--- NOTE | 2018-10-19 18:18 | NUR ---
DISCHARGE NOTE: Patient's vital signs stable. Bonding well with baby. Going home with baby. Teaching done. All questions answered. Patient already scheduled a follow up appointment for with Dr. Delgado. Seen by Emma, Trading Analyst who also provided Patient with breast pump. Please refer to her note.
--- NOTE | 2018-10-19 18:20 | NUR ---
Patient also provided with an abdominal binder as per her request.
== END 2018-10-19 19:30 | disposition home or self-care (01) | DRG 807 ==
LOC: OBT 23:30 → L-D 23:30 → OBT 10-16 01:00 → L-D 10-16 01:00 → PP1 10-17 23:22
PROVIDERS: ADMIT Obstetrics & Gynecology; ATTEND Obstetrics & Gynecology
PROC: 10E0XZZ Delivery of Products of Conception, External Approach (ICD-10-PCS; principal; 2018-10-17)
DX: O80 Encounter for full-term uncomplicated delivery (principal); Z37.0 Single live birth; Z3A.37 37 weeks gestation of pregnancy
CPT/HCPCS: 62319; 76816; 76818; 84112; 85025; 85610; 85730; 86592; 86703; 86850; 86900; 86901; 87340; 88307; 90686; 99464; G0463; J2590; J3010; J7120

== ENCOUNTER 2019-05-05 15:10 | Emergency (ER) | payer OTHER ==
[~2019-05-05] VITALS: Ht 165.1 cm; Wt 73.4 kg
[2019-05-05 15:16] VITALS: BP 126/82; PULSE 92; RESP 18; Ht 165.1 cm; Wt 73.4 kg
[2019-05-05] MEDS ORDERED: LIDOCAINE 1% (MPF) 5 ML VIAL INFIL ONE (15:30)
[2019-05-05] MEDS ORDERED: SILVER NITRATE SWAB TOP ONE (15:30)
[2019-05-05] MEDS ORDERED: ACETAMINOPHEN 650 MG SUPP PR ONE (16:30)
[2019-05-05] MEDS ORDERED: ACETAMINOPHEN 500 MG TAB PO STA (17:01)
[2019-05-05] MEDS ORDERED: ACET500C5 PO (17:03)
--- NOTE | 2019-05-05 17:04 | ERD ---
ER Documentation Chief Complaint Chief Complaint PT with LAC to Left hand , cut hand with plate HPI 34-year-old female presents to ED complaining of a laceration to her right hand 30 minutes ago. She states that she was washing dishes and addition broke cutting her hand and to location, one in the web spacing between the first and second digit and the second laceration on the proximal aspect of the fifth digit. She denies any previous injury to the hand in the past. She states that she is having 7 out of 10 that is throbbing in character. She denies any radiation of the pain. She has not used any medications to help her pain. She states that she is currently breast-feeding. She denies any other symptoms at this time. ROS All systems reviewed and are negative except as per history of present illness. Medications Home Meds Active Scripts Acetaminophen* (Tylophen*) 500 Mg Capsule, 1 CAP PO Q6H PRN for PAIN AND OR ELEVATED TEMP, #20 CAP Prov:HANNA BUSTILLOS PA-C 05/05/19 Reported Medications Vits W-Ca,Fe,Fa(<1MG) ( Vitamins) 1 Tab Tablet, 1 TAB PO DAILY for 7 Days 01/12/14 Allergies Allergies: Coded Allergies: Penicillins (Verified Allergy, Intermediate, DIARRHEA AND RASH, 10/16/18) PMhx/Soc History of Surgery: Yes (RT. BREAST SX.) Anesthesia Reaction: No Hx Neurological Disorder: No Hx Respiratory Disorders: No Hx Cardiac Disorders: No Hx Psychiatric Problems: No Hx Miscellaneous Medical Probl: No Hx Alcohol Use: No Hx Substance Use: No Hx Tobacco Use: No Smoking Status: Never smoker FmHx Family History: No diabetes Physical Exam Vitals Vital Signs Date Temp Pulse Resp B/P (MAP) Pulse Ox O2 O2 Flow FiO2 Time Delivery Rate 05/05/19 98.9 92 18 126/82 95 15:16 (97) Physical Exam Const: No acute distress Head: Atraumatic Abd: Soft, non tender, non distended. Normal bowel sounds Skin: 2 lacerations on right hand: 1 inch laceration between the webspacing of the 1-2 digit. 1 inch laceration on the proximal area of under the 5th digit. These are on the dorsal side on the hand Neur: Awake and alert Psych: Normal Mood and Affect Results 24 hrs Current Medications Medications Dose Sig/[place] Start Time Status Last (Trade) Ordered Route PRN Stop Time Admin Dose Reason Admin Silver 1 stick ONCE ONCE 05/05/19 DC Nitrate TOP 15:30 (Silver 05/05/19 15:31 Nitrate Swabs) Lidocaine 5 ml ONCE ONCE 05/05/19 DC (Xylocaine INFIL 15:30 1% (Mpf)) 05/05/19 15:31 650 mg ONCE ONCE 05/05/19 DC Acetaminophen MT 16:30 (Tylenol 05/05/19 17:02 Supp) 1,000 mg ONCE STAT 05/05/19 DC 05/05/19 Acetaminophen PO 17:01 17:05 (Tylenol 05/05/19 17:03 Tab) Procedures/MDM ED COURSE: The patient was stable throughout ED course. I kept the patient informed of laboratory and diagnostic imaging results throughout the ED course. DIAGNOSTIC IMAGING: Read by radiologist. PROCEDURE: XR right hand. CLINICAL INDICATION: Pain, laceration. TECHNIQUE: Three portable views of the right hand were obtained. COMPARISON: None. FINDINGS: There is no acute fracture or dislocation. Osseous structures are intact. Joint spaces are maintained. There is no focal soft tissue abnormality. IMPRESSION: 1. No acute osseous abnormality. 2. No visible radiopaque foreign body. RPTAT:HAJM Physician Justin Date Time Electronically viewed and signed by Physician Justin on 05/05/2019 16:33 PROCEDURES: LACERATION: The patient was verbally consented prior to procedure. Patient was explained the risks, benefits and alternatives to this procedure. Location: right hand Length: 1 inch Anesthesia: local 1% lidocaine, 5 cc Inspection: The wound was thoroughly explored and no foreign bodies, deep tissue, tendon or structural injuries were noted. Repair: The area was prepared and draped in the usual sterile manner with the wound exposed. [#3] sutures were placed on both lacerations each (6 total) with good wound closure and wound approximation. Bleeding was minimal. The patient tolerated the procedure well with no complications. The wound was dressed with bacitracin and sterile gauze. The patient was neurovascularly intact post- procedure. Post- procedural wound care was discussed with the patient. MEDICATIONS GIVEN: tylenol, lidocaine Patient tolerated medication well with no adverse reactions. Patient reported improvement in pain. MEDICAL DECISION MAKING: Patient is a 34 year old female with 2 lacerations to the right hand. Vital signs were reviewed. Patient is afebrile. Patient was not hypoxic. Patient was hemodynamically stable. Patient was told to follow up with primary care for further care and management. Laceration Repair by me: Anesthesia: 1% lidocaine locally Location: Right hand Tendon/Joint/Nerves: No injury Foreign body: None detected after copious irrigation and exploration Technique: Simple Interrupted Sutures Complexity: No subcutaneous sutures/mucosal repair/edge excision Post Closure Length: 1 inch Patient's bleeding was easily controlled in the department and there is no indication of anemia. No evidence of compartment syndrome, neurologic injury, vascular injury, open joint, tendon laceration, or foreign body. Patient is appropriate for outpatient follow up. 48 hour wound check. Scar minimization instructions given. Pt was placed in a clean antimicrobial dressing. PRESCRIPTION: tylenol DISCHARGE: At this time, patient is stable for discharge and outpatient management. I have instructed the patient to follow-up with his/her primary care physician in 1-2 days. I have discussed with the patient the possibility of needing to see a specialist for further workup and imaging studies if symptoms persist. I have instructed the patient to promptly return to the ER for any new or worsening symptoms including increased pain, fever, nausea, vomiting, weakness or LOC. The patient expressed understanding of and agreement with this plan. All questions were answered. Home care instructions were provided. Disclaimer: Inadvertent spelling and grammatical errors are likely due to EHR/dictation software use and do not reflect on the overall quality of patient care. Also, please note that the electronic time recorded on this note does not necessarily reflect the actual time of the patient encounter. Departure Diagnosis: Primary Impression: Laceration Condition: Fair Patient Instructions: Laceration, Hand Referrals: COMMUNITY CLINICS YOU HAVE RECEIVED A MEDICAL SCREENING EXAM AND THE RESULTS INDICATE THAT YOU DO NOT HAVE A CONDITION THAT REQUIRES URGENT TREATMENT IN THE EMERGENCY DEPARTMENT. FURTHER EVALUATION AND TREATMENT OF YOUR CONDITION CAN WAIT UNTIL YOU ARE SEEN IN YOUR DOCTORS OFFICE WITHIN THE NEXT 1-2 DAYS. IT IS YOUR RESPONSIBILITY TO MAKE AN APPOINTMENT FOR FOLOW-UP CARE. IF YOU HAVE A PRIMARY DOCTOR --you should call your primary doctor and schedule an appointment IF YOU DO NOT HAVE A PRIMARY DOCTOR YOU CAN CALL OUR PHYSICIAN REFERRAL HOTLINE AT IF YOU CAN NOT AFFORD TO SEE A PHYSICIAN YOU CAN CHOSE FROM THE FOLLOWING [facility] [address] [facility] [address] [facility] [address] [facility] [address] [facility] [address] [facility]. [facility] [address] [facility]. [facility] YOU HAVE RECEIVED A MEDICAL SCREENING EXAM AND THE RESULTS INDICATE THAT YOU DO NOT HAVE A CONDITION THAT REQUIRES URGENT TREATMENT IN THE EMERGENCY DEPARTMENT. FURTHER EVALUATION AND TREATMENT OF YOUR CONDITION CAN WAIT UNTIL YOU ARE SEEN IN YOUR DOCTORS OFFICE WITHIN THE NEXT 1-2 DAYS. IT IS YOUR RESPONSIBILITY TO MAKE AN APPOINTMENT FOR FOLOW-UP CARE. IF YOU HAVE A PRIMARY DOCTOR --you should call your primary doctor and schedule and appointment IF YOU DO NOT HAVE A PRIMARY DOCTOR YOU CAN CALL OUR PHYSICIAN REFERRAL HOTLINE AT . IF YOU CAN NOT AFFORD TO SEE A PHYSICIAN YOU CAN CHOSE FROM THE FOLLOWING [facility] INSTITUTIONS: [facility] [address] [place] [address] [facility] [address] [place] [address] [facility] [address] [place] [address] Additional Instructions: Return to this facility in 2 DAYS for a follow-up exam for a wound check.Return sooner if your condition worsens. Tylenol for pain as needed HANNA BUSTILLOS PA-C May 05, 2019 17:04
== END 2019-05-05 17:15 | disposition home or self-care (01) ==
LOC: FTE 15:10
DX: S61.216A Laceration without foreign body of right little finger without damage to nail, initial encounter (principal); S61.011A Laceration without foreign body of right thumb without damage to nail, initial encounter; S61.210A Laceration without foreign body of right index finger without damage to nail, initial encounter; W26.8XXA Contact with other sharp object(s), not elsewhere classified, initial encounter; Y92.9 Unspecified place or not applicable
CPT/HCPCS: 12001; 73130; Z7502; Z7610